=== PATIENT | male | born 1960 | race Caucasian/White ===

== ENCOUNTER 2016-12-09 16:35 | Emergency (ER) | payer MEDICARE, MEDICAID ==
[2016-12-09 16:51] VITALS: BP 125/90
[2016-12-09] MEDS ORDERED: Fluorescein Sodium TOPICAL* 1 MG TEST OPHTHALMIC ONE (17:03)
[2016-12-09] MEDS ORDERED: BSS OPTH.SOL* BTL OPHTHALMIC ONE (17:03)
[2016-12-09] MEDS ORDERED: Tetracaine 0.5% OPTH.SOL 4 ML* 1 DROP BTL ONE (17:09)
--- NOTE | 2016-12-09 17:10 | UC ---
Eye Complaint HPI - HPI Summary HPI Summary: complaint of red itchy right eye that started yesterday purulent drainage from it today eye is bothered by light denies vision changes and pain doesn't wear contacts 4 days ago he was hit in the eye by something when his friend was mowing the lawn - History of Current Complaint Chief Complaint: UCEye Stated Complaint: LEFT EYE COMPLAINT Time Seen by Provider: 12/09/16 17:01 Hx Obtained From: Patient - Allergies/Home Medications Allergies/Adverse Reactions: Allergies Allergy/AdvReac Type Severity Reaction Status Date / Time No Known Allergies Allergy Verified 12/09/16 16:50 Home Medications: Home Medications Furosemide TAB* [Lasix TAB*] 20 mg PO DAILY 12/09/16 [History Confirmed 12/09/16 ] Gabapentin CAP(*) [Neurontin 100 mg CAP(*)] 200 mg PO TID 12/09/16 [History Confirmed 12/09/16] Insulin Aspart PEN(NF) [Novolog Flexpen(NF)] 45 unit SC TID 12/09/16 [History Confirmed 12/09/16] Insulin GLARGINE(*) [Lantus(*)] 60 units SUBCUT Q12H 12/09/16 [History Confirmed 12/09/16] Lisinopril TAB* [Prinivil TAB 10 MG*] 10 mg PO DAILY 12/09/16 [History Confirmed 12/09/16] Metoprolol Tartrate TAB* [Lopressor TAB*] 25 mg PO DAILY 12/09/16 [History Confirmed 12/09/16] Rivaroxaban TAB(*) [Xarelto 20 mg] 20 mg PO DAILY 12/09/16 [History Confirmed ] oxyCODONE/Acetamin 5/325 MG* [Percocet 5/325 TAB*] 1 tab PO Q4H PRN 12/09/16 [ History Confirmed 12/09/16] PMH/Surg Hx/FS Hx/Imm Hx Previously Healthy: Yes Endocrine History: Diabetes Cardiovascular History: Cardiac Disease - Surgical History Surgical History: Yes Surgery Procedure, Year, and Place: cardiac stents 2010. right leg amuputation 2014 - Family History Known Family History: Negative: Cardiac Disease, Hypertension, Diabetes - Social History Occupation: Employed Full-time Lives: With Family Alcohol Use: None Substance Use Type: Marijuana Smoking Status (MU): Heavy Every Day Tobacco Smoker Type: Cigarettes Amount Used/How Often: 1ppd Cessation Counseling: Patient Advised to Stop Review of Systems Constitutional: Negative Skin: Negative Eyes: Drainage, Eye Redness, Photophobia ENT: Negative Respiratory: Negative Cardiovascular: Negative Gastrointestinal: Negative Genitourinary: Negative Motor: Negative Neurovascular: Negative Musculoskeletal: Negative Neurological: Negative Psychological: Negative All Other Systems Reviewed And Are Negative: Yes Physical Exam Triage Information Reviewed: Yes Appearance: No Pain Distress, Well-Nourished Vital Signs: Initial Vital Signs Temp 98.3 F 12/09/16 16:44 Pulse 75 12/09/16 16:44 Resp 16 12/09/16 16:44 BP 125/90 12/09/16 16:44 Pulse Ox 98 12/09/16 16:44 Vital Signs Reviewed: Yes Eyes: Positive: Conjunctiva Inflamed, Discharge, Other: - right eye observed under fluoriscine- no foreign objects seen, no abrasions on cornea ENT: Positive: Pharynx normal, TMs normal Neck: Positive: Supple, No Lymphadenopathy Respiratory: Positive: Lungs clear, Normal breath sounds, No respiratory distress Cardiovascular: Positive: RRR, No Murmur Abdomen Description: Positive: Nontender, Soft Bowel Sounds: Positive: Present Musculoskeletal: Positive: No Edema - LLE, Other: - RBKA Neurological: Positive: Alert Psychological Exam: Normal Skin Exam: Normal Eye Complaint Course/Dx - Differential Dx/Diagnosis Differential Diagnosis/HQI/PQRI: Conjunctivitis, Corneal Abrasion, Foreign Body Provider Diagnoses: conjunctivitis- right Discharge - Discharge Plan Condition: Stable Disposition: HOME Patient Education Materials: Conjunctivitis (ED) Referrals: Thor Stanton MD [Primary Care Provider] - Caity Mitchell MD [Medical Doctor] - Additional Instructions: Please start antibiotic eye ointment as directed Increase fluids and rest please call Dr Mitchell for an evaluation tomorrow- if you have any eye pain vision changes tonight please proceed to the emergency room Please review your discharge instructions. If your symptoms do not improve please call your primary care provider or return to urgent care.
[2016-12-09] MEDS ORDERED: Erythromycin OPTH OINT* APPLIC OINT RIGHT EYE ONE (17:19)
[2016-12-09] MEDS ORDERED: Tetracaine 0.5% OPTH.SOL 4 ML* 1 DROP BTL RIGHT EYE SCH (17:30)
== END 2016-12-09 17:41 | disposition home or self-care (01) ==
LOC: UCCORT 16:35
DX: H10.31 Unspecified acute conjunctivitis, right eye (principal); E11.9 Type 2 diabetes mellitus without complications; Z79.4 Long term (current) use of insulin; Z75.5 Holiday relief care; Z89.611 Acquired absence of right leg above knee; F17.210 Nicotine dependence, cigarettes, uncomplicated
CPT/HCPCS: 99213; A9270-GY; G0463

== ENCOUNTER 2018-11-02 19:21 | Emergency (ER) | payer MEDICARE, MEDICAID ==
--- OUTSIDE RECORDS SUMMARY | 2018-11-02 19:30 | XMS REPORT | Continuity of Care Document ---
:1960 External Reference #:[id number] Author Name Nolan Swan M.D. Address [address] [facility] [address] [place] [address] Care Team Providers Name Role Phone HCP given Primary Care Physician Unavailable Payers Date Identification Numbers Payment Provider Subscriber Policy Number: [id number] [employer] [facility] Maryann Byers PayID: [id number] Claims Dept [address] [address] [place] [address] Policy Number: [id number] Medicaid Maryann Byers PayID: [id number] [address] [place] [address] Advance Directives Description No Information Available Problems Active Problems Provider Date Phantom limb Nolan Swan M.D. Onset: 10/27/2016 Essential hypertension Nolan Swan M.D. Onset: 02/25/2017 Peripheral vascular disorder due to diabetes Nolan Swan M.D. Onset: 06/2016 mellitus History of polyp of colon Nolan Swan M.D. Onset: 02/25/2017 Alvarenga's esophagus Nolan Swan M.D. Onset: 02/25/2017 Chronic kidney disease Nolan Swan M.D. Onset: 02/25/2017 Tobacco user Nolan Swan M.D. Onset: 02/25/2017 Hyperlipidemia Tiff Gonzalez PA Onset: 07/06/2017 Long-term current use of opiate analgesic Nolan Swan M.D. Onset: 2017 drug Amputated below knee Nolan Swan M.D. Onset: 06/21/2018 Peripheral vascular disease Nolan Swan M.D. Onset: 06/21/2018 Type 2 diabetes mellitus Nolan Swan M.D. Onset: 06/21/2018 Cerebrovascular disease Nolan Swan M.D. Onset: 10/18/2018 Family History Date Family Member(s) Observation Comments : (age 70 Father due to Heart Years) problems and Diabetes Mother due to Kidney () - sec to DM Failure (in her early 70s) Children 6 1 daughter age 15 as of 04/24/16), 5 sons (ages 9-31 as of 04/24/16) Siblings Many 5 brothers, 8 sisters Social History Type Date Description Comments Sex Unknown Marital Status Work Status 10/27/2016 Not Currently Working Last 'real job' was ~[phone] Work Status Disability [email or web address] Tobacco Use Reviewed: 10/27/16 current cigarette smoker 1ppd since age 31; ~1/2ppd in his 20s; started smoking at age 16 Smoking Status Reviewed: 10/18/18 current cigarette smoker 1ppd since age 31 ; ~1/2ppd in his 20s; started smoking at age 16 ETOH Use 10/27/2016 Denies alcohol use Recreational Drug Use 10/27/2016 Denies Drug Use other than MJ (up to 1 joint/day) Tobacco Use Start: Unknown Patient is a current smoker, smokes every day Allergies, Adverse Reactions, Alerts Description No Known Drug Allergies Medications Active Medications SIG Qnty Indications Ordering Date Provider Nicotine apply 1 patch, 42units F17.210 Silcoff, 10/18/2018 21mg/24HR change daily as Jacqueline Francisco Patches 24HR directed; use for 6 weeks then change to 14mg strength Clopidogrel Take One Tablet By Unknown 10/17/2018 Bisulfate Mouth Every Day to 75mg reduce risk of Tablets clots Lantus Solostar inject 86units 45ml E11.59 Silcoff, 06/21/2018 2x/day, at same Jacqueline Francisco 100Unit/ML Solution time every day; for Pen-Inject blood sugar control Mupirocin Apply A Small Unknown 03/28/2018 2% Ointment Amount Daily To Left Heel Wound Amlodipine Besylate Take One Tablet By 30tabs I10 Silcoadalberto, 01/11/2018 Mouth Every Day For Jacqueline Francisco 10mg Tablets Blood Pressure Atorvastatin Calcium Take One Tablet By 30tabs E78.5 Silcoadalberto, 01/11/2018 Mouth Every Evening Jacqueline Francisco 20mg Tablets For Cholesterol Vitamin D take one capsule by 5caps E55.9 Silcoadalberto, 09/11/2017 (Ergocalciferol) mouth once weekly Jacqueline Francisco [id number] Capsules Metoprolol Tartrate Take One Tablet By 60tabs I10 Silcoadalberto, 03/13/2017 Mouth Twice A Day Jacqueline Francisco 50mg Tablets For High Blood Pressure Lisinopril Take One Tablet By 90tabs I10 Silcoadalberto, 12/24/2016 20mg Mouth Every Morning Jacqueline Francisco Tablets For High Blood Pressure Novolog Flexpen use 3x/day just 45ml E11.59 Silcoadalberto, 11/23/2016 before starting to Jacqueline Francisco 100Unit/ML Solution eat meals, Pen-Inject following sliding scale as provided by [facility]; Max 45u/meal Aspir-Low 1 every day Unknown 10/26/[address] Mclaughlin 1 every 5min as 50tabs Silcoadalberto, 10/26/2016 0.4mg needed heart pain Jacqueline Francisco Tablets Sub up to 3 max then call 911 if unreleaved Laton For Pen 31GX3/16" Unknown 10/01/2016 Oxycodone-Acetaminop take one tablet by 180tabs G54.6 Silcoadalberto, 09/13/2016 hen mouth every 4 hours Jacqueline Francisco 5-325mg Tablets as needed for pain; rx due 10/19/18 Omeprazole Take One Capsule By 30caps Beny, 08/11/2016 20mg Mouth Every Day Jacqueline Francisco Capsules Gabapentin Take Two Capsules 180caps G54.6 Zeldacoadalberto, 08/11/2016 300mg By Mouth Three Jacqueline Francisco Capsules Times A Day For Chronic Pain Bupropion HCL ER Take One Tablet By 60tabs Beny, 08/11/2016 (SR) Mouth Twice A Day Jacqueline Francisco 100mg Tablets ER For Mood 12HR Furosemide Take One Tablet By 90tabs Silcoadalberto, 07/09/2016 20mg Mouth Every Day Jacqueline Francisco Tablets History Medications Benzonatate 1 cap by mouth 30caps J06.9 Silcoff, 07/06/2017 - 200mg three times a day Jacqueline Francisco 11/14/2017 Capsules as needed cough Atorvastatin take 1 tablet daily 90tabs E78.5 Silcoff, 05/02/2017 - Calcium to reduce Jacqueline Francisco 01/11/2018 10mg cholesterol and Tablets lower risk of heart disease progression Lantus Solostar inject 80units 45ml E11.59 Silcoff, 05/02/2017 - 2x/day; for blood Jacqueline Francisco 06/21/2018 100Unit/ML Solution sugar control Pen-Inject Amlodipine Besylate Take One Tablet By 30tabs I10 Silcoff, 03/13/2017 - Mouth Every Day For Jacqueline Francisco 01/11/2018 5mg Tablets High Blood Pressure Chantix 1/2 pill once daily 60tabs F17.210 Silcoff, 02/25/2017 - 1mg Tablets for 3 days then 1/2 Jacqueline Francisco 11/14/2017 pill twice daily for 4 days then 1 pill twice daily; to help quit smoking Nicotine Polacrilex chew 1 piece every 200units F17.210 Silcoff, 2016 - 1-2hrs for 6wks Jacqueline Francisco 02/25/2017 2mg Gum then every 2 to 4 hours x3wks then q4-8h x3wks then d/c; use at least 9/d the 1st 6wks Lisinopril 1 pill daily in the 30tabs I10 Silcoff, 11/23/2016 - 10mg morning for high Jacqueline Francisco 12/24/2016 Tablets blood pressure Metformin HCL Take One Tablet By E11.59 Unknown 10/26/2016 - Mouth Twice A Day; 01/26/2017 1000mg Tablets for blood sugar control Lantus Solostar Inject 60 Units E11.59 Unknown 09/13/2016 - Subcutaneous Twice 05/02/2017 100Unit/ML Solution A Day Pen-Inject Humalog Kwikpen Sliding Scale Unknown 09/08/2016 - 11/23/2016 100Unit/ML Solution Pen-Inject Metoprolol Tartrate take 1/ 2 tablet by 90tabs I10 Silcoff, 07/07/2016 - mouth two times a Jacqueline Francisco 03/13/2017 25mg Tablets day for high blood pressure Xarelto Take One Tablet By 30tabs Beny, 07/07/2016 - 20mg Mouth Every Day Jacqueline Francisco 10/17/2018 Tablets Immunizations CPT Code Status Date Vaccine Lot # [id number] Given 04/19/2018 Influenza Virus Vaccine, Quadrivalent, Split, [id number] Preservative Free 17867 Given 02/25/2017 Adacel or Boostrix, TDaP [id number] Given 02/25/2017 Influenza Virus Vaccine, Quadrivalent, Split, [id number] Preservative Free 20605 Given 08/27/2013 Pneumococcal Immunization Vital Signs Date Vital Result Comment 10/18/2018 1:26pm BP Systolic 147 mmHg electronic BP Diastolic 75 mmHg electronic Heart Rate 74 /min Weight 248.00 lb 08/22/2018 2:26pm BP Systolic 142 mmHg BP Diastolic 80 mmHg Weight 241.00 lb 06/21/2018 1:55pm BP Systolic 132 mmHg BP Diastolic 80 mmHg Weight 245.00 lb with shoes 04/19/2018 8:59am BP Systolic 130 mmHg BP Diastolic 70 mmHg Weight 249.00 lb with shoes 02/07/2018 11:13am BP Systolic 120 mmHg BP Diastolic 80 mmHg BP Systolic Recheck 116 mmHg R arm sitting BP Diastolic Recheck 84 mmHg R arm sitting Weight 244.00 lb w/shoes 01/11/2018 8:44am BP Systolic 160 mmHg BP Diastolic 84 mmHg Weight 244.00 lb 12/02/2017 11:44am BP Systolic 124 mmHg BP Diastolic 70 mmHg Weight 228.38 lb has leg prosthesis 11/23/2017 5:53pm BP Systolic 139 mmHg per pt reporting BP Diastolic 76 mmHg per pt reporting Heart Rate 76 /min 11/15/2017 1:33pm BP Systolic 130 mmHg BP Diastolic 80 mmHg Height 71 inches 5'11" prosthesis Weight 241.00 lb prosthesis BMI (Body Mass Index) 33.6 kg/m2 09/12/2017 12:58pm BP Systolic 136 mmHg BP Diastolic 69 mmHg Heart Rate 77 /min Weight 240.00 lb w/rt leg prosthetic 07/06/2017 3:23pm BP Systolic 161 mmHg w/automatic cuff BP Diastolic 80 mmHg w/automatic cuff Heart Rate 85 /min Body Temperature 98.0 F Weight 219.00 lb with sneaker;rt BKA 05/02/2017 11:44am BP Systolic 124 mmHg BP Diastolic 80 mmHg 02/25/2017 11:12am BP Systolic 162 mmHg BP Diastolic 100 mmHg BP Systolic Recheck 130 mmHg R arm sitting BP Diastolic Recheck 96 mmHg R arm sitting Weight 215.00 lb 12/24/2016 9:41am BP Systolic 168 mmHg BP Diastolic 86 mmHg BP Systolic Recheck 166 mmHg R arm sitting BP Diastolic Recheck 94 mmHg R arm sitting Weight 229.00 lb w/shoe 11/23/2016 3:37pm BP Systolic 138 mmHg BP Diastolic 88 mmHg BP Systolic Recheck 146 mmHg R arm sitting BP Diastolic Recheck 84 mmHg R arm sitting Height 71 inches 5'11" per pt Weight 225.00 lb per pt BMI (Body Mass Index) 31.4 kg/m2 10/27/2016 4:57pm BP Systolic 142 mmHg BP Diastolic 80 mmHg Results Test Date Facility Test Result H/L Range Note CBS 08/21/2018 [facility] White Blood 7.9 K/uL N 3.4-10.5 1 W/Automated LABORATORY Count Diff [phone] Red Blood Count 5.33 M/uL N 4.20-5.80 Hemoglobin 15.0 gm/dL N 12.8-17.0 Hematocrit 44.2 % N 38.0-48.0 Mean Cell Volume 82.9 fl N 80.0-96.0 Mean Corpuscular HGB 28.1 pg N 27.0-33.0 Mean Corpuscular HGB Conc 33.9 g/dL N 31.7-36.0 Platelet Count 213 K/uL N 155-360 Red Cell Distri Width SD 42.5 fl N 36-51 Red Cell Distri Width %CV 14.2 % N 11.6-15.8 Mean Platelet Volume 9.0 fL N 6.6-10.6 Neut% 64.5 % N 33.0-73.0 Lymph % 25.7 % N 20.0-42.0 Mcmullen % 5.1 % N 0.0-10.0 Eo% 3.9 % N 0.0-6.6 Bas% 0.8 % N 0.0-1.1 Neut# 5.09 K/uL N 1.8-7.0 Lymph # 2.03 K/uL N 1.0-4.0 Mcmullen # 0.40 K/uL N 0.0-0.8 Eos # 0.31 K/uL N 0.0-0.5 Baso # 0.06 K/uL N 0.0-0.1 Influenza A/B 08/21/2018 [facility] Influenza A Negative ( Negative) Antigen LABORATORY Antigen [phone] Influenza B Antigen Negative (Negative) 2 Laboratory test 06/21/2018 In House Hemoglobin A1c 13.1 finding Basic Metabolic Panel 04/19/2018 [facility] Sodium 137 mmol/L N 135- 145 [phone] Potassium 4.9 mmol/L N 3.5-5.0 Chloride 104 mmol/L N 101-111 Co2 Carbon Dioxide 25 mmol/L N 22-32 Anion Gap 8 mmol/L N 2-11 Glucose 142 mg/dL High 70-100 Blood Urea Nitrogen 38 mg/dL High 6-24 Creatinine 1.47 mg/dL High 0.67-1.17 BUN/Creatinine Ratio 25.9 High 8-20 Calcium 9.2 mg/dL N 8.6-10.3 Egfr Non- 49.6 >60 Egfr 60.0 >60 3 Urine Microalbumin 04/19/2018 [facility] Urine Creatinine 153.00 mg/dL Random [phone] Ur Microalbumin (mg/L) 1497.0 Urine Microalbumin/Creatinine 978.4 High <31 Hemoglobin A1c 03/17/2018 [facility] Hgb A1c MFr Bld 11.3 % High 4.0- 6.0 Est. average glucose Bld gHb Est-mCnc 278 mg/dL High <126 Laboratory test 03/17/2018 [facility] Glucose Poc 249 mg/dL High 70- 105 finding Laboratory test 02/07/2018 [facility] Surgical SEE RESULT 4 finding [phone] Pathology BELOW Drugs Of 01/30/2018 [facility] Amphetamines Negative 5 Abuse-Urine LABORATORY (Urine) Screen 7 [phone] Barbiturates (Urine) Negative Benzodiazepines (Urine) Negative Cannabinoids (Urine) POSITIVE Abnormal Cocaine Metabolite (Urine) Negative Methadone (Urine) Negative Opiates (Urine) POSITIVE Abnormal Urine Cutoffs * 6 Laboratory test 01/30/2018 [facility] Triglycerides 668 mg/dL High <150 7, 8 finding LABORATORY [phone] Aot Request 01/30/2018 [facility] Aot Request Test(s) 9, 10 LABORATORY added [phone] Tests to be added: BMP Laboratory test 01/30/2018 [facility] Ethyl Alcohol < 3.0 mg/ dL finding LABORATORY [phone] Lactic Acid 01/30/2018 [facility] Lactic Acid 1.5 mmol/L N 0.4-1. LABORATORY 9 [phone] Lab Reflex >2.0 for Sepsis? N Basic Metabolic 01/30/2018 [facility] Glucose 347 mg/dL High 74-106 Panel LABORATORY [phone] BUN 35 mg/dL High 7-18 Creatinine 1.8 mg/dL High 0.6-1.3 Glom Filtration Rate, Estimate 42 mL/min >60 If 50 mL/min >60 11 BUN/Creat 19.4 ratio Sodium 134 mmol/L Low 136-145 Potassium 4.7 mmol/L N 3.5-5.1 Chloride 103 mmol/L N 98-107 Carbon Dioxide 22 mmol/L N 21-32 Anion Gap 9 mEq/L N 8-16 Calcium 8.4 mg/dL Low 8.5-10.1 Aot Request 01/30/2018 [facility] Aot Request Test(s) added 12 LABORATORY [phone] Tests to be added: troponin Laboratory test 01/30/2018 [facility] Lipase 418 U/L High 56 -289 finding LABORATORY [phone] Urinalysis With 01/29/2018 [facility] Urine Color YELLOW Yellow 13 Microscopic LABORATORY [phone] Urine Clarity CLEAR Clear Urine Glucose - Dipstick NEGATIVE mg/dL Negative Urine Bilirubin - Dipstick NEGATIVE Negative Urine Ketone NEGATIVE mg/dL Negative Urine Specific Butterfield 1.020 N 1.010-1.030 Urine Blood SMALL Abnormal Negative Urine PH 5.5 Low 6.5-7.5 Urine Protein - Dipstick 100 mg/dL High Negative Urine Urobilinogen - Dipstick 0.2 E.U./dL N 0.2-1.0 Urine Nitrite - Dipstick NEGATIVE Negative Urine Leuk Esterase NEGATIVE Negative Urine RBC 5-10 rbc/hpf High 0-2 Urine WBC 2-5 wbc/hpf 0-7 Urine Epithelial Cells FEW /lpf None Seen Urine Bacteria FEW None Seen Urine Hyaline Cast 0-2 #/lpf None Seen Urine Coarse Granular Cast 0-2 #/lpf None Seen Source: URINE, CLEAN CAT <SEE NOTE> 14 Laboratory test 01/28/2018 [facility] Troponin-I < 0.015 15, 16 finding LABORATORY ng/mL [phone] CBC 01/06/2018 [facility] White Blood 7.3 K/uL N 3.4-1 17 LABORATORY Count 0.5 [phone] Red Blood Count 5.64 M/uL N 4.20-5.80 Hemoglobin 15.9 gm/dL N 12.8-17.0 Hematocrit 46.6 % N 38.0-48.0 Mean Cell Volume 82.6 fl N 80.0-96.0 Mean Corpuscular HGB 28.2 pg N 27.0-33.0 Mean Corpuscular HGB Conc 34.1 g/dL N 31.7-36.0 Platelet Count 216 K/uL N 155-360 Red Cell Distri Width %CV 14.7 % N 11.6-15.8 Mean Platelet Volume 8.9 fL N 6.6-10.6 Basic Metabolic 01/06/2018 [facility] Glucose 147 mg/dL High 74-106 Panel LABORATORY [phone] BUN 24 mg/dL High 7-18 Creatinine 1.3 mg/dL N 0.6-1.3 Glom Filtration Rate, Estimate >60 mL/min >60 If >60 mL/min >60 18 BUN/Creat 18.4 ratio Sodium 139 mmol/L N 136-145 Potassium 4.1 mmol/L N 3.5-5.1 Chloride 109 mmol/L High 98-107 Carbon Dioxide 23 mmol/L N 21-32 Anion Gap 7 mEq/L Low 8-16 Calcium 8.4 mg/dL Low 8.5-10.1 Urinalysis With 01/05/2018 [facility] Urine Color YELLOW Yellow 19 Microscopic LABORATORY [phone] Urine Clarity CLEAR Clear Urine Glucose - Dipstick >=1000 mg/dL High Negative Urine Bilirubin - Dipstick NEGATIVE Negative Urine Ketone NEGATIVE mg/dL Negative Urine Specific Butterfield 1.015 N 1.010-1.030 Urine Blood MODERATE Abnormal Negative Urine PH 5.5 Low 6.5-7.5 Urine Protein - Dipstick 100 mg/dL High Negative Urine Urobilinogen - Dipstick 0.2 E.U./dL N 0.2-1.0 Urine Nitrite - Dipstick NEGATIVE Negative Urine Leuk Esterase NEGATIVE Negative Urine RBC 0-2 rbc/hpf 0-2 Urine WBC NONE SEEN wbc/hpf 0-7 Urine Epithelial Cells VERY FEW /lpf None Seen Urine Bacteria VERY FEW None Seen Urine Amorph Sediment VERY FEW Negative Source: URINE, CLEAN CAT <SEE NOTE> 20 LDL Cholesterol 01/05/2018 [facility] Cholesterol 226 mg/dL High <200 21, 22 Profile LABORATORY [phone] Triglycerides 536 mg/dL High <150 23 HDL Cholesterol 27 mg/dL Low >40 24 LDL-Cholesterol TNP mg/dL < 100 25 Glycohemoglobin 01/05/2018 [facility] Glycohemoglobin 13.3 % High 4.2-6.3 26 A1c LABORATORY (A1c) [phone] eAG 335 mg/dL Aot Request 01/05/2018 [facility] Aot Request Test(s) added 27, 28 LABORATORY [phone] Tests to be added: cpk, troponin CBS W/Automated 01/05/2018 [facility] White Blood 9.8 K/uL N 3.4-10.5 Diff LABORATORY Count [phone] Red Blood Count 5.67 M/uL N 4.20-5.80 Hemoglobin 16.2 gm/dL N 12.8-17.0 Hematocrit 46.1 % N 38.0-48.0 Mean Cell Volume 81.3 fl N 80.0-96.0 Mean Corpuscular HGB 28.6 pg N 27.0-33.0 Mean Corpuscular HGB Conc 35.1 g/dL N 31.7-36.0 Platelet Count 215 K/uL N 155-360 Red Cell Distri Width SD 42.1 fl N 36-51 Red Cell Distri Width %CV 14.4 % N 11.6-15.8 Mean Platelet Volume 9.1 fL N 6.6-10.6 Neut% 65.6 % N 33.0-73.0 Lymph % 22.4 % N 20.0-42.0 Mcmullen % 7.8 % N 0.0-10.0 Eo% 3.7 % N 0.0-6.6 Bas% 0.5 % N 0.0-1.1 Neut# 6.46 K/uL N 1.8-7.0 Lymph # 2.20 K/uL N 1.0-4.0 Mcmullen # 0.77 K/uL N 0.0-0.8 Eos # 0.36 K/uL N 0.0-0.5 Baso # 0.05 K/uL N 0.0-0.1 Comprehensive 01/05/2018 [facility] Glucose 459 mg/dL High 74-106 Metabolic Panel LABORATORY [phone] BUN 30 mg/dL High 7-18 Creatinine 1.6 mg/dL High 0.6-1.3 Glom Filtration Rate, Estimate 48 mL/min >60 If 58 mL/min >60 29 BUN/Creat 18.7 ratio Sodium 133 mmol/L Low 136-145 Potassium 4.8 mmol/L N 3.5-5.1 Chloride 98 mmol/L N 98-107 Carbon Dioxide 22 mmol/L N 21-32 Anion Gap 13 mEq/L N 8-16 Calcium 8.8 mg/dL N 8.5-10.1 Total Protein 7.8 g/dL N 6.4-8.2 Albumin 3.1 g/dL Low 3.4-5.0 Globulin 4.7 g/dL High 1.9-4.3 Alb/Glob 0.7 ratio Bilirubin,Total 0.3 mg/dL N 0.2-1.0 Sgot/Ast 34 U/L N 15-37 SGPT/Alt 58 U/L N 12-78 Alkaline Phosphatase 134 U/L High 45-117 Laboratory test 01/05/2018 [facility] Lipase 08472 U/L High 56-289 30 finding LABORATORY [phone] CK 323 U/L High 39-308 31 Troponin-I < 0.015 ng/mL 32 Laboratory test 12/02/2017 In House Glucose 259 finding Quantitative Laboratory test 11/15/2017 In House Hemoglobin A1c 12.4 finding Comp Metabolic 11/10/2017 [facility] Sodium 133 mmol/L Low 139-145 Panel [phone] Chloride 97 mmol/L Low 101-111 Co2 Carbon Dioxide 26 mmol/L N 22-32 Glucose 402 mg/dL High 70-100 Blood Urea Nitrogen 24 mg/dL N 6-24 Creatinine 1.14 mg/dL N 0.67-1.17 BUN/Creatinine Ratio 21.1 High 8-20 Calcium 9.4 mg/dL N 8.6-10.3 Total Protein 7.1 g/dL N 6.4-8.9 Albumin 3.6 g/dL N 3.2-5.2 Globulin 3.5 g/dL N 2-4 Albumin/Globulin Ratio 1.0 N 1-3 Total Bilirubin 0.50 mg/dL N 0.2-1.0 Alkaline Phosphatase 177 U/L High 34-104 Alt 89 U/L High 7-52 Ast 72 U/L High 13-39 Egfr Non- 66.4 >60 Egfr 85.5 >60 33 Potassium 5.1 mmol/L High 3.5-5.0 Anion Gap 10 mmol/L N 2-11 CBS W/Automated 08/16/2017 [facility] White Blood 6.4 K/uL N 3.4-10.5 34 Diff LABORATORY Count [phone] Red Blood Count 4.88 M/uL N 4.20-5.80 Hemoglobin 14.2 gm/dL N 12.8-17.0 Hematocrit 42.3 % N 38.0-48.0 Mean Cell Volume 86.7 fl N 80.0-96.0 Mean Corpuscular HGB 29.1 pg N 27.0-33.0 Mean Corpuscular HGB Conc 33.6 g/dL N 31.7-36.0 Platelet Count 169 K/uL N 155-360 Red Cell Distri Width SD 43.8 fl N 36-51 Red Cell Distri Width %CV 14.2 % N 11.6-15.8 Mean Platelet Volume 9.3 fL N 6.6-10.6 Neut% 50.5 % N 33.0-73.0 Lymph % 36.3 % N 20.0-42.0 Mcmullen % 7.2 % N 0.0-10.0 Eo% 5.1 % N 0.0-6.6 Bas% 0.9 % N 0.0-1.1 Neut# 3.23 K/uL N 1.8-7.0 Lymph # 2.33 K/uL N 1.0-4.0 Mcmullen # 0.46 K/uL N 0.0-0.8 Eos # 0.33 K/uL N 0.0-0.5 Baso # 0.06 K/uL N 0.0-0.1 Basic Metabolic 08/16/2017 [facility] Glucose 207 mg/dL High 74-106 Panel LABORATORY [phone] BUN 23 mg/dL High 7-18 Creatinine 1.2 mg/dL N 0.6-1.3 Glom Filtration Rate, Estimate >60 mL/min >60 If >60 mL/min >60 35 BUN/Creat 19.1 ratio Sodium 138 mmol/L N 136-145 Potassium 4.4 mmol/L N 3.5-5.1 Chloride 104 mmol/L N 98-107 Carbon Dioxide 29 mmol/L N 21-32 Anion Gap 5 mEq/L Low 8-16 Calcium 8.3 mg/dL Low 8.5-10.1 Urinalysis With 08/15/2017 [facility] Urine Color YELLOW Yellow Microscopic LABORATORY [phone] Urine Clarity CLEAR Clear Urine Glucose - Dipstick 500 mg/dL High Negative Urine Bilirubin - Dipstick NEGATIVE Negative Urine Ketone NEGATIVE mg/dL Negative Urine Specific Butterfield >=1.030 N 1.010-1.030 Urine Blood TRACE Negative Urine PH 5.5 Low 6.5-7.5 Urine Protein - Dipstick 100 mg/dL High Negative Urine Urobilinogen - Dipstick 0.2 E.U./dL N 0.2-1.0 Urine Nitrite - Dipstick NEGATIVE Negative Urine Leuk Esterase NEGATIVE Negative Urine RBC 0-2 rbc/hpf 0-2 Urine WBC 0-2 wbc/hpf 0-7 Urine Epithelial Cells VERY FEW /lpf None Seen Urine Bacteria VERY FEW None Seen Urine Hyaline Cast 0-2 #/lpf None Seen Urine Mucus SMALL None Seen Source: URINE, CLEAN CAT <SEE NOTE> 36 Laboratory 08/15/2017 [facility]. Legionella Negative Negative 37 test finding LABORATORY Urinary [phone] Antigen Legionella 08/15/2017 [facility]. Legionella No Legionella 38 Culture LABORATORY Culture sp <SEE NOTE> [phone] CBS 08/15/2017 [facility] White Blood 10.2 K/uL N 3.4-10.5 39 W/Automated LABORATORY Count Diff [phone] Red Blood Count 5.34 M/uL N 4.20-5.80 Hemoglobin 15.8 gm/dL N 12.8-17.0 Hematocrit 45.8 % N 38.0-48.0 Mean Cell Volume 85.8 fl N 80.0-96.0 Mean Corpuscular HGB 29.6 pg N 27.0-33.0 Mean Corpuscular HGB Conc 34.5 g/dL N 31.7-36.0 Platelet Count 204 K/uL N 155-360 Red Cell Distri Width SD 44.5 fl N 36-51 Red Cell Distri Width %CV 14.4 % N 11.6-15.8 Mean Platelet Volume 9.2 fL N 6.6-10.6 Neut% 60.9 % N 33.0-73.0 Lymph % 28.8 % N 20.0-42.0 Mcmullen % 7.4 % N 0.0-10.0 Eo% 2.4 % N 0.0-6.6 Bas% 0.5 % N 0.0-1.1 Neut# 6.19 K/uL N 1.8-7.0 Lymph # 2.92 K/uL N 1.0-4.0 Mcmullen # 0.75 K/uL N 0.0-0.8 Eos # 0.24 K/uL N 0.0-0.5 Baso # 0.05 K/uL N 0.0-0.1 Comprehensive 08/15/2017 [facility] Glucose 286 mg/dL High 74-106 Metabolic Panel LABORATORY [phone] BUN 29 mg/dL High 7-18 Creatinine 1.6 mg/dL High 0.6-1.3 Glom Filtration Rate, Estimate 48 mL/min >60 If 58 mL/min >60 40 BUN/Creat 18.1 ratio Sodium 136 mmol/L N 136-145 Potassium 5.1 mmol/L N 3.5-5.1 Chloride 103 mmol/L N 98-107 Carbon Dioxide 24 mmol/L N 21-32 Anion Gap 9 mEq/L N 8-16 Calcium 8.8 mg/dL N 8.5-10.1 Total Protein 7.4 g/dL N 6.4-8.2 Albumin 2.9 g/dL Low 3.4-5.0 Globulin 4.5 g/dL High 1.9-4.3 Alb/Glob 0.6 ratio Bilirubin,Total 0.3 mg/dL N 0.2-1.0 Sgot/Ast 83 U/L High 15-37 SGPT/Alt 75 U/L N 12-78 Alkaline Phosphatase 148 U/L High 45-117 Laboratory test finding 08/15/2017 [facility] Lipase 153 U/L N 56-289 LABORATORY [phone] CK 453 U/L High 39-308 41 Troponin-I < 0.015 ng/mL 42 Glycohemoglobin 08/15/2017 [facility] Glycohemoglobin 12.2 % High 4.2-6.3 43, A1c LABORATORY (A1c) 44 [phone] eAG 303 mg/dL Microalbumin,Urine 08/11/2017 [facility] Microalbumin Unable to <23.0 45, 46 Ur-mCnc Void mg/L Creat Ur-mCnc Unable to Void mg/dL Albumin/Creat Ur Unable to Void ug/mgcreat <20.0 Laboratory test 08/11/2017 [facility] Free Thyroxine 1.09 ng/dL 0.93- 1.70 finding Lipid Profile 1 08/11/2017 [facility] Cholest 183 mg/dL <200 SerPl-mCnc Trigl SerPl-mCnc 259 mg/dL High <150 HDLc SerPl-mCnc 31 mg/dL Low >40 LDLc SerPl Calc-mCnc 100 mg/dL High <100 VLDLc SerPl Calc-mCnc 52 mg/dL High 16-42 NonHDLc SerPl-mCnc 152 mg/dL High <130 Comprehensive Metabolic 08/11/2017 [facility] Albumin SerPl 3.8 g/dL 3.5-5.2 Levine BCG-mCnc Bilirub SerPl-mCnc 0.2 mg/dL <1.2 Calcium SerPl-mCnc 9.1 mg/dL 8.6-10.0 Chloride SerPl-sCnc 101 mmol/L 98-107 Creat SerPl-mCnc 1.21 mg/dL High 0.5-1.2 Glucose SerPl-mCnc 172 mg/dL High 70-140 Alp SerPl-cCnc 131 U/L High 40-129 Potassium SerPl-sCnc 4.3 mmol/L 3.5-5.1 Prot SerPl-mCnc 7.1 g/dL 6.4-8.3 Sodium SerPl-sCnc 142 mmol/L 136-145 Ast SerPl-cCnc 64 U/L High <40 BUN SerPl-mCnc 18 mg/dL 6-20 Osmolality SerPl Calc 300 mosm/kg 275-300 Creat/Urea nit SerPl 15 Hco3 Ser-sCnc 26 mmol/L 22-29 Alt SerPl-cCnc 62 U/L High <41 Anion Gap3 SerPl-sCnc 15 mmol/L 8-15 Albumin/Glob SerPl 1.2 GFR/Bsa pred.non black SerPl MDRD-ArVRat 65 mL/min/1.73m2 >60 GFR/Bsa pred.black SerPl MDRD-ArVRat 76 mL/min/1.73m2 >60 Laboratory test finding 08/11/2017 [facility] TSH 1.430 u[IU]/mL 0.270 -4.200 Vit D 25 Hydroxy Total 13 ng/mL Low >30 Laboratory test 08/11/2017 [facility] Glucose Poc 271 mg/dL High 70- 105 finding Hemoglobin A1c 08/11/2017 [facility] Hgb A1c MFr Bld >14.0 % High 4.0- 6.0 Est. average glucose Bld gHb Est-mCnc Unable to calcul <SEE NOTE> mg/dL < 126 47 Laboratory test 07/06/2017 [facility] House Hemoglobin A1c 13.3 finding CBC 03/13/2017 [facility] White Blood Count 5.5 K/uL N 3.4- 10. 48 LABORATORY 5 [phone] Red Blood Count 4.73 M/uL N 4.20-5.80 Hemoglobin 14.1 gm/dL N 12.8-17.0 Hematocrit 40.1 % 38.0-48.0 Mean Cell Volume 84.8 fl N 80.0-96.0 Mean Corpuscular HGB 29.8 pg N 27.0-33.0 Mean Corpuscular HGB Conc 35.2 g/dL N 31.7-36.0 Platelet Count 143 K/uL Low 150-400 Red Cell Distri Width %CV 14.3 % N 11.6-15.8 Mean Platelet Volume 9.6 fL N 6.6-10.6 Comprehensive 03/13/2017 [facility] Glucose 286 mg/dL High 74-106 Metabolic Panel LABORATORY [phone] BUN 32 mg/dL High 7-18 Creatinine 1.4 mg/dL High 0.6-1.3 Glom Filtration Rate, Estimate 56 mL/min >60 If >60 mL/min >60 49 BUN/Creat 22.8 ratio Sodium 137 mmol/L N 136-145 Potassium 4.3 mmol/L N 3.5-5.1 Chloride 106 mmol/L N 98-107 Carbon Dioxide 23 mmol/L N 21-32 Anion Gap 8 mEq/L N 8-16 Calcium 8.2 mg/dL Low 8.5-10.1 Total Protein 6.5 g/dL N 6.4-8.2 Albumin 2.7 g/dL Low 3.4-5.0 Globulin 3.8 g/dL N 1.9-4.3 Alb/Glob 0.7 ratio Bilirubin,Total 0.4 mg/dL N 0.2-1.0 Sgot/Ast 115 U/L High 15-37 SGPT/Alt 155 U/L High 12-78 Alkaline Phosphatase 116 U/L N 45-117 Glycohemoglobin 03/13/2017 [facility] Glycohemoglobin 13.9 % High 4.2-6.3 50 A1c LABORATORY (A1c) [phone] eAG 352 mg/dL Aot Request 03/12/2017 [facility] Aot Request Test(s) added 51 LABORATORY [phone] Tests to be added: liver panal CBS W/Automated 03/12/2017 [facility] White Blood 6.9 K/uL N 3.4-10.5 Diff LABORATORY Count [phone] Red Blood Count 5.40 M/uL N 4.20-5.80 Hemoglobin 15.6 gm/dL N 12.8-17.0 Hematocrit 45.0 % N 38.0-48.0 Mean Cell Volume 83.3 fl N 80.0-96.0 Mean Corpuscular HGB 28.9 pg N 27.0-33.0 Mean Corpuscular HGB Conc 34.7 g/dL N 31.7-36.0 Platelet Count 157 K/uL N 150-400 Red Cell Distri Width SD 42.8 fl N 36-51 Red Cell Distri Width %CV 14.3 % N 11.6-15.8 Mean Platelet Volume 9.2 fL N 6.6-10.6 Neut% 45.1 % N 33.0-73.0 Lymph % 43.0 % High 20.0-42.0 Mcmullen % 7.1 % N 0.0-10.0 Eo% 3.9 % N 0.0-6.6 Bas% 0.9 % N 0.0-1.1 Neut# 3.13 K/uL N 1.8-7.0 Lymph # 2.98 K/uL N 1.0-4.0 Mcmullen # 0.49 K/uL N 0.0-0.8 Eos # 0.27 K/uL N 0.0-0.5 Baso # 0.06 K/uL N 0.0-0.1 Basic Metabolic 03/12/2017 [facility] Glucose 321 mg/dL High 74-106 Panel LABORATORY [phone] BUN 45 mg/dL High 7-18 Creatinine 1.7 mg/dL High 0.6-1.3 Glom Filtration Rate, Estimate 45 mL/min >60 If 54 mL/min >60 52 BUN/Creat 26.4 ratio Sodium 135 mmol/L Low 136-145 Potassium 4.5 mmol/L N 3.5-5.1 Chloride 104 mmol/L N 98-107 Carbon Dioxide 21 mmol/L N 21-32 Anion Gap 10 mEq/L N 8-16 Calcium 8.5 mg/dL N 8.5-10.1 Liver Function 03/12/2017 [facility] Total Protein 7.3 g/dL N 6.4-8.2 Tests LABORATORY [phone] Albumin 3.0 g/dL Low 3.4-5.0 Globulin 4.3 g/dL N 1.9-4.3 Alb/Glob 0.7 ratio Bilirubin,Total 0.5 mg/dL N 0.2-1.0 Bilirubin,Direct 0.1 mg/dL N 0.0-0.2 Bilirubin,Indirect 0.4 mg/dL N 0.0-0.9 Sgot/Ast 151 U/L High 15-37 SGPT/Alt 150 U/L High 12-78 Alkaline Phosphatase 131 U/L High 45-117 Basic Metabolic 03/12/2017 [facility] Glucose 344 mg/dL High 74-106 Panel LABORATORY [phone] BUN 52 mg/dL High 7-18 Creatinine 1.8 mg/dL High 0.6-1.3 Glom Filtration Rate, Estimate 42 mL/min >60 If 51 mL/min >60 53 BUN/Creat 28.8 ratio Sodium 133 mmol/L Low 136-145 Potassium 4.6 mmol/L N 3.5-5.1 Chloride 102 mmol/L N 98-107 Carbon Dioxide 22 mmol/L N 21-32 Anion Gap 9 mEq/L N 8-16 Calcium 8.4 mg/dL Low 8.5-10.1 CBS W/Automated 03/11/2017 [facility] White Blood 7.6 K/uL N 3.4-10.5 54 Diff LABORATORY Count [phone] Red Blood Count 5.47 M/uL N 4.20-5.80 Hemoglobin 16.1 gm/dL N 12.8-17.0 Hematocrit 45.2 % N 38.0-48.0 Mean Cell Volume 82.6 fl N 80.0-96.0 Mean Corpuscular HGB 29.4 pg N 27.0-33.0 Mean Corpuscular HGB Conc 35.6 g/dL N 31.7-36.0 Platelet Count 179 K/uL N 150-400 Red Cell Distri Width SD 42.2 fl N 36-51 Red Cell Distri Width %CV 14.3 % N 11.6-15.8 Mean Platelet Volume 9.7 fL N 6.6-10.6 Neut% 59.6 % N 33.0-73.0 Lymph % 29.8 % N 20.0-42.0 Mcmullen % 6.2 % N 0.0-10.0 Eo% 3.7 % N 0.0-6.6 Bas% 0.7 % N 0.0-1.1 Neut# 4.52 K/uL N 1.8-7.0 Lymph # 2.26 K/uL N 1.0-4.0 Mcmullen # 0.47 K/uL N 0.0-0.8 Eos # 0.28 K/uL N 0.0-0.5 Baso # 0.05 K/uL N 0.0-0.1 Venous Blood Gas 03/11/2017 [facility] Venous Blood 7.34 N 7.25-7.55 LABORATORY Gas pH [phone] Venous Blood Gas Pco2 45 mmHg N 45-50 Venous Blood Gas Po2 45 mmHg N 40-60 Venous Blood Gas Hco3 23.4 mEq/L Venous Blood Gas Base XS -2.6 mEq/L Venous Blood Gas OS Sat. 80.6 % High 60-80 Laboratory test 03/11/2017 [facility]. NT-proBNP 102.0 <125 finding LABORATORY pg/mL [phone] Comprehensive 01/01/2017 [facility] Glucose 245 mg/dL High 74-106 55 Metabolic Panel LABORATORY [phone] BUN 40 mg/dL High 7-18 Creatinine 2.5 mg/dL High 0.6-1.3 Glom Filtration Rate, Estimate 29 mL/min >60 If 35 mL/min >60 56 BUN/Creat 16.0 ratio Sodium 136 mmol/L N 136-145 Potassium 4.8 mmol/L N 3.5-5.1 Chloride 101 mmol/L N 98-107 Carbon Dioxide 24 mmol/L N 21-32 Anion Gap 11 mEq/L N 8-16 Calcium 8.4 mg/dL Low 8.5-10.1 Total Protein 7.5 g/dL N 6.4-8.2 Albumin 3.2 g/dL Low 3.4-5.0 Globulin 4.3 g/dL N 1.9-4.3 Alb/Glob 0.7 ratio Bilirubin,Total 0.3 mg/dL N 0.2-1.0 Sgot/Ast 95 U/L High 15-37 SGPT/Alt 130 U/L High 12-78 Alkaline Phosphatase 147 U/L High 45-117 Laboratory test 01/01/2017 [facility] Lipase 262 U/L N 73- 393 57 finding LABORATORY [phone] CBS W/Automated 01/01/2017 [facility] White Blood 11.0 K/uL High 3.4-10.5 Diff LABORATORY Count [phone] Red Blood Count 5.79 M/uL N 4.20-5.80 Hemoglobin 16.6 gm/dL N 12.8-17.0 Hematocrit 48.0 % N 38.0-48.0 Mean Cell Volume 82.9 fl N 80.0-96.0 Mean Corpuscular HGB 28.7 pg N 27.0-33.0 Mean Corpuscular HGB Conc 34.6 g/dL N 31.7-36.0 Platelet Count 210 K/uL N 150-400 Red Cell Distri Width SD 44.6 fl N 36-51 Red Cell Distri Width %CV 14.9 % N 11.6-15.8 Mean Platelet Volume 9.5 fL N 6.6-10.6 Neut% 67.0 % N 33.0-73.0 Lymph % 24.3 % N 20.0-42.0 Mcmullen % 5.6 % N 0.0-10.0 Eo% 2.6 % N 0.0-6.6 Bas% 0.5 % N 0.0-1.1 Neut# 7.36 K/uL High 1.8-7.0 Lymph # 2.67 K/uL N 1.0-4.0 Mcmullen # 0.62 K/uL N 0.0-0.8 Eos # 0.28 K/uL N 0.0-0.5 Baso # 0.05 K/uL N 0.0-0.1 Slide Review 01/01/2017 [facility] Slide Review (SEE NOTE) 58 LABORATORY [phone] Basic Metabolic 12/24/2016 [facility] Sodium 129 mmol/L Low 133-14 Panel [phone] Potassium 4.8 mmol/L N 3.5-5.0 Chloride 96 mmol/L Low 101-111 Co2 Carbon Dioxide 23 mmol/L N 22-32 Anion Gap 10 mmol/L N 2-11 Glucose 381 mg/dL High 70-100 Blood Urea Nitrogen 33 mg/dL High 6-24 Creatinine 1.43 mg/dL High 0.67-1.17 BUN/Creatinine Ratio 23.1 High 8-20 Calcium 9.5 mg/dL N 8.6-10.3 Egfr Non- 51.3 N >60 Egfr 66.0 N >60 59 Laboratory test 12/24/2016 [facility] Hepatitis B Core Negative N Negative 60 finding [phone] AB Total TSH (Thyroid Stim Horm) 2.16 mcIU/mL N 0.34-5.60 Alpha 1 Antitrypsin A1a 137 mg/dL N 100 - 190 61 Tissue Transglutamianse Iga AB 2.8 U/mL N 62 Hepatitis B Aric 12/24/2016 [facility] Hepatitis B Nonreactive N Nonreactive AB Titer [phone] Surface AB Hep B Surf AB Level < 3.10 mIU/mL N <12 63 Laboratory test finding 12/24/2016 [facility] GGTP 258 U/L High 9- 64.0 [phone] Hepatitis B Surface Ag Nonreactive N Nonreactive Inr/Protime 12/24/2016 [facility] Inr 0.89 N 0.89-1.11 [phone] Laboratory test 12/24/2016 [facility] Smooth Muscle Negative N Negative 64 finding [phone] Antibody Anti Nuclear Antibody 1.6 U Abnormal 65 Iron & Iron Binding Capacity 12/24/2016 [facility] Iron 88 g/dL N 50-212 [phone] Unsaturated Iron Binding 339 g/dL N Total Iron Binding Capacity 427 g/dL N 250-450 % Iron Saturation 21 % N 15-55 Laboratory test 12/24/2016 [facility] Hepatitis C Nonreactive N Nonreactive finding [phone] Antibody Ceruloplasmin 48 mg/dL Abnormal 18-36 66 Liver Function Panel 12/24/2016 [facility] Total Protein 6.9 g/dL N 6.4-8.9 [phone] Albumin 3.6 g/dL N 3.2-5.2 Globulin 3.3 g/dL N 2-4 Albumin/Globulin Ratio 1.1 N 1-3 Total Bilirubin 0.40 mg/dL N 0.2-1.0 Direct Bilirubin 0.10 mg/dL N 0.03-0.18 Indirect Bilirubin 0.3 mg/dL N 0.3-1.0 Alkaline Phosphatase 154 U/L High 34-104 Alt 98 U/L High 7-52 Ast 71 U/L High 13-39 Urine Drug Screen Inhouse 10/27/2016 In House Ua Cocaine - Ua Opiates - Ua Amphetamines - Urine Methanphetamines - Urine Benzodiazepines QN [place] - Urine Oxycodone QL - 1 ? FLU 2 Please Note: A POSITIVE result for influenza A and/or B antigen does not rule out a co-infection with other pathogens or identify any specific influenza A virus subtype. A NEGATIVE result for influenza A and/or B antigen does not preclude influenza virus infection and should not be the sole basis for treatment or other management decisions, since the antigen present in the specimen may be below the detection limit of the test. A NEGATIVE result is PRESUMPTIVE and it is recommended these results be confirmed by virus culture or an FDA-cleared influenza A and B molecular assay. Method: [place] MR Photoelectricityitor Chromatographic immunoassay 3 Because ethnic data is not always readily available, this report includes an eGFR for both -Americans and non- Americans. The National Kidney Disease Education Program (NKDEP) does not endorse the use of the MDRD equation for patients that are not between the ages of 18 and 70, are , have extremes of body size, muscle mass, or nutritional status, or are non- or non-. According to the National Kidney Foundation, irrespective of diagnosis, the stage of the disease is based on the level of kidney function: Stage Description GFR(mL/min/1.73 m(2)) 1 Kidney damage with normal or decreased GFR 90 2 Kidney damage with mild decrease in GFR 60-89 3 Moderate decrease in GFR 30-59 4 Severe decrease in GFR 15-29 5 Kidney failure <15 (or dialysis) 4 SEE RESULT BELOW Name: MARYANN BYERS : [address]: Nolan Swan MD Acct: [id number] Unit: [id number] AGE: 57 Location: [facility] Re02/07/18 SEX: M Status: REG REF SPEC: [id number] NIRAJ: 02/07/18-[address]: Nolan Swan MD REQ: [id number] RECD: 02/07/18 STATUS: SOUT _ ORDERED: LEVEL 4 COMMENTS: [id number] FINAL DIAGNOSIS Skin, left forearm, biopsy: -- Verrucous seborrheic keratoses. CLINICAL HISTORY Ongoing many months PRE-OPERATIVE DIAGNOSIS D48.5 GROSS DESCRIPTION The specimen is received in formalin labeled, Shave Excisions Left Forearm, and consists of two mottled lora-brown ovoid scaly friable hairbearing skin shaves measuring 0.3 x 0.2 cm and 0.5 x 0.3 cm. Received separately in the same container is a 0.5 x 0.3 x 0.2 cm aggregate of lora-brown irregular friable skin fragments. The specimen is filtered, differentially inked and the largest fragment bisected. The specimen is submitted entirely in one cassette. Signed by and Reported on: Lisa Muniz MD 02/09/18 1430 END OF REPORT DEPARTMENT OF PATHOLOGY, [address] [place] [address] Harjeet Downing M.D. Director [facility] # [id number] 5 ACUTE PANCREATITIS 6 URINE SPECIMENS ARE SCREENED AT THE LISTED CUTOFFS DRUG CLASS INITIAL TEST LEVEL Amphetamines 1000 ng/mL Barbiturates 200 ng/mL Benzodiazepines 200 ng/mL Cannabinoids 50 ng/mL Cocaine Metabolite 300 ng/mL Methadone 300 ng/mL Opiates 300 ng/mL Any PRESUMPTIVE POSITIVE findings are UNCONFIRMED. Confirmatory testing is suggested if findings are unexpected. Please contact laboratory if confirmatory testing is desired. SPECIMENS ARE HELD FOR 72 HOURS. 7 NEVA PATEL WANTED HIM TO STAY LAST NIGHT-LEFT AMA 8 Reference Guidelines*: Normal: ............. < 150 mg/dL Borderline High: .... 150-199 mg/dL High: ............... 200-499 mg/dL Very High: .......... > 500 mg/dL * Source: National Cholesterol Education Program (NCEP) 9 ACUTE PANCREATITIS 10 Tests: BMP Instructions: 11 Note: Persistent reduction for 3 months or more in an eGFR <60 mL/min/1.73 m2 defines CKD. Patients with eGFR values >/=60 mL/min/1.73 m2 may also have CKD if evidence of persistent proteinuria is present. The original MDRD equation for estimated GFR is not valid for patients less than 18 years of age. Additional information may be found at [email or web address].org. 12 Tests: troponin Instructions: 13 NEVA PATEL WANTED HIM TO STAY LAST NIGHT-LEFT AMA 14 URINE, CLEAN CATCH 15 L SIDE ABD PAIN, DID NOT F/U W/ MD AFTER PANCREATI 16 0.0 - 0.045 ng/mL: Normal 0.046 - 0.5 ng/mL: Suggestive 0.6 - 1.5 ng/mL: Consistent 17 ACUTE PANCREATITIS 18 Note: Persistent reduction for 3 months or more in an eGFR <60 mL/min/1.73 m2 defines CKD. Patients with eGFR values >/=60 mL/min/1.73 m2 may also have CKD if evidence of persistent proteinuria is present. The original MDRD equation for estimated GFR is not valid for patients less than 18 years of age. Additional information may be found at www.[email or web address]. 19 RT SIDE INTO UPPER ABD PAIN 20 URINE, CLEAN CATCH 21 ACUTE PANCREATITIS 22 Reference Guidelines*: Desirable: ........... < 200 mg/dL Borderline High: ..... 200-239 mg/dL High: ................ >=240 mg/dL * The National Cholesterol Education Program (NCEP) 23 Reference Guidelines*: Normal: ............. < 150 mg/dL Borderline High: .... 150-199 mg/dL High: ............... 200-499 mg/dL Very High: .......... > 500 mg/dL * Source: National Cholesterol Education Program (NCEP) 24 Reference Guidelines*: Low HDL: ..... < 40 mg/dL Normal: ..... 40-60 mg/dL Desirable: ... > 60 mg/dL *The National Cholesterol Education Program(NCEP) 25 (LDL CANNOT BE CALCULATED FOR TRIGS >400 mg/dL) 26 Elevated levels of HbA1c suggest the need for more aggressive treatment of glycemia. The [place] [employer] recommends that a primary goal of therapy should be a HbA1c of <7% and that physicians should re-evaluate the treatment regimen in patients with HbA1c values consistently >8%. 27 RT SIDE INTO UPPER ABD PAIN 28 Tests: cpk, troponin Instructions: 29 Note: Persistent reduction for 3 months or more in an eGFR <60 mL/min/1.73 m2 defines CKD. Patients with eGFR values >/=60 mL/min/1.73 m2 may also have CKD if evidence of persistent proteinuria is present. The original MDRD equation for estimated GFR is not valid for patients less than 18 years of age. Additional information may be found at www.[email or web address]. 30 Result confirmed by repeat analysis. 31 CALLED YARA Dinh R.N. IN ER WITH LIPASE RESULT AT 0115 01/05/18 by LAB.TOW 32 0.0 - 0.045 ng/mL: Normal 0.046 - 0.5 ng/mL: Suggestive 0.6 - 1.5 ng/mL: Consistent 33 Because ethnic data is not always readily available, this report includes an eGFR for both -Americans and non- Americans. The National Kidney Disease Education Program (NKDEP) does not endorse the use of the MDRD equation for patients that are not between the ages of 18 and 70, are , have extremes of body size, muscle mass, or nutritional status, or are non- or non-. According to the National Kidney Foundation, irrespective of diagnosis, the stage of the disease is based on the level of kidney function: Stage Description GFR(mL/min/1.73 m(2)) 1 Kidney damage with normal or decreased GFR 90 2 Kidney damage with mild decrease in GFR 60-89 3 Moderate decrease in GFR 30-59 4 Severe decrease in GFR 15-29 5 Kidney failure <15 (or dialysis) 34 CAP, CKD, DM 35 Note: Persistent reduction for 3 months or more in an eGFR <60 mL/min/1.73 m2 defines CKD. Patients with eGFR values >/=60 mL/min/1.73 m2 may also have CKD if evidence of persistent proteinuria is present. The original MDRD equation for estimated GFR is not valid for patients less than 18 years of age. Additional information may be found at www.[email or web address]. 36 URINE, CLEAN CATCH 37 Presumptive negative for L. pneumophila serogroup 1 antigen in urine, suggesting no recent or current infection. Legionnaires' disease cannot be ruled out since other serogroups and species may also cause disease. 38 No Legionella species isolated. Performed at: RN - [facility] [address] [id number] [employer] T[employer]or: Heavenly Ndiaye MD, Phone: [phone] 39 RT LOWER BACK PAIN, RT CHEST PAIN, POSS FLU 40 Note: Persistent reduction for 3 months or more in an eGFR <60 mL/min/1.73 m2 defines CKD. Patients with eGFR values >/=60 mL/min/1.73 m2 may also have CKD if evidence of persistent proteinuria is present. The original MDRD equation for estimated GFR is not valid for patients less than 18 years of age. Additional information may be found at [email or web address]. 41 Specimen slightly Hemolyzed, interpret with caution 42 0.0 - 0.045 ng/mL: Normal 0.046 - 0.5 ng/mL: Suggestive 0.6 - 1.5 ng/mL: Consistent 43 CAP, CKD, DM 44 Elevated levels of HbA1c suggest the need for more aggressive treatment of glycemia. The [place] Diabetes Association recommends that a primary goal of therapy should be a HbA1c of <7% and that physicians should re-evaluate the treatment regimen in patients with HbA1c values consistently >8%. 45 UTV 46 PER RESPIRATORY CARE PROGRAM DIRECTOR 47 Unable to calculate 48 HYPERGLYCEMIA, HYPERKALEMIA, CKD 49 Note: Persistent reduction for 3 months or more in an eGFR <60 mL/min/1.73 m2 defines CKD. Patients with eGFR values >/=60 mL/min/1.73 m2 may also have CKD if evidence of persistent proteinuria is present. The original MDRD equation for estimated GFR is not valid for patients less than 18 years of age. Additional information may be found at www.[email or web address]. 50 Elevated levels of HbA1c suggest the need for more aggressive treatment of glycemia. The [place] [employer] recommends that a primary goal of therapy should be a HbA1c of <7% and that physicians should re-evaluate the treatment regimen in patients with HbA1c values consistently >8%. 51 Tests: liver panal Instructions: 52 Note: Persistent reduction for 3 months or more in an eGFR <60 mL/min/1.73 m2 defines CKD. Patients with eGFR values >/=60 mL/min/1.73 m2 may also have CKD if evidence of persistent proteinuria is present. The original MDRD equation for estimated GFR is not valid for patients less than 18 years of age. Additional information may be found at [email or web address]. 53 Note: Persistent reduction for 3 months or more in an eGFR <60 mL/min/1.73 m2 defines CKD. Patients with eGFR values >/=60 mL/min/1.73 m2 may also have CKD if evidence of persistent proteinuria is present. The original MDRD equation for estimated GFR is not valid for patients less than 18 years of age. Additional information may be found at [email or web address]. 54 HIGH BLOOD SUGAR, BLURRY VISION, NUMBNESS HANDS 55 LOW LT ABD PAIN 56 Note: Persistent reduction for 3 months or more in an eGFR <60 mL/min/1.73 m2 defines CKD. Patients with eGFR values >/=60 mL/min/1.73 m2 may also have CKD if evidence of persistent proteinuria is present. The original MDRD equation for estimated GFR is not valid for patients less than 18 years of age. Additional information may be found at [email or web address]. 57 SPECIMEN LIPEMIC 58 Instrument flagged sample for slide review. Less than 10% Bands seen, no other immature WBC's seen. RBC morphology essentially normal. Platelet estimate=Normal 59 Because ethnic data is not always readily available, this report includes an eGFR for both -Americans and non- Americans. The National Kidney Disease Education Program (NKDEP) does not endorse the use of the MDRD equation for patients that are not between the ages of 18 and 70, are , have extremes of body size, muscle mass, or nutritional status, or are non- or non-. According to the National Kidney Foundation, irrespective of diagnosis, the stage of the disease is based on the level of kidney function: Stage Description GFR(mL/min/1.73 m(2)) 1 Kidney damage with normal or decreased GFR 90 2 Kidney damage with mild decrease in GFR 60-89 3 Moderate decrease in GFR 30-59 4 Severe decrease in GFR 15-29 5 Kidney failure <15 (or dialysis) 60 Test Performed by: [place] [address] 61 Test Performed by: [place] [address] 62 REFERENCE VALUE <4.0 (Negative) Test Performed by: [place] [address] 63 This assay does not differentiate between reactivity due to a vaccine-induced immune response or an immune response induced by infection with HBV. 64 ADDITIONAL INFORMATION This test was developed and its performance characteristics determined by [facility] in a manner consistent with CLIA requirements. This test has not been cleared or approved by the U.S. Food and Drug Administration. Test Performed by: [facility] [address] [place] [address] 65 Interpretation: Weak Positive (1.1-2.9) REFERENCE VALUE <=1.0 (Negative) Test Performed by: [facility] [address] [place] [address] 66 Adults: Males: 18-36 mg/dL Females: 18-53 mg/dL Pediatrics: Males (mg/dL) Females (mg/dL) 0-30 Days 8-25 3-28 31 Days-11 Month 15-48 15-43 1-3 Years 25-56 29-54 4-6 Years 29-56 26-54 7-9 Years 25-52 23-48 10-12 Years 21-51 21-48 13-15 Years 20-50 21-46 16-18 Years 20-45 22-50 The pediatric ranges are derived from the following criteria: Marcel SJ, Telly JM, Lore J et al Pediatric reference ranges for Awlk-4-Lwyssftedojzc and ceruloplasmin. Clin. Chem 1997; 43:S1999 Pediatric Reference Ranges, 2nd., [place] Marcelet al. editors. [employer], [place], [place] 1997. Test Performed at: [facility], [address] [place] [address] [employer] [place], FCAP Test Performed by: [facility] [place] [address] [place] [address] Procedures Date Code Description Status 08/31/2018 [id number] Diabetic Retinal Eye Exam Completed 06/21/2018 [id number] Diabetic Foot Exam Completed 02/07/2018 93909 Biopsy Skin Lesion Each Addtl Completed 02/07/2018 93612 Biopsy Skin Lesion Single Completed 09/12/2017 82524 Remove Impact Cerumen Irrigation/Lavage Unilateral Completed 01/18/2017 [id number] Colonoscopy Completed Encounters Type Date Location Provider Dx Diagnosis Office Visit 10/18/2018 Main Office Nolan Swan, G54.6 Phantom limb 1:30p M.D. 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 I10 Essential (primary) hypertension N18.9 Chronic kidney disease, unspecified Z89.511 Acquired absence of right leg below knee H53.123 Transient visual loss, bilateral F17.210 Nicotine dependence, cigarettes, uncomplicated Office Visit 06/21/2018 1:45p Main Office Beny E11.59 Type 2 diabetes Jacqueline Francisco mellitus with oth circulatory complications G54.6 Phantom limb syndrome with pain Z79.891 alf (current) use of opiate analgesic I10 Essential (primary) hypertension N18.9 Chronic kidney disease, unspecified Z89.511 Acquired absence of right leg below knee L97.421 Non-prs chr ulcer of left heel and midft lmt to brkdwn skin E11.21 Type 2 diabetes mellitus with diabetic nephropathy Office Visit 04/19/2018 9:15a Main Office Nolan Swan, G54.6 Phantom limb M.D. 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 K85.90 Acute pancreatitis without necrosis or infection, unsp N18.9 Chronic kidney disease, unspecified K86.1 Other chronic pancreatitis D48.5 Neoplasm of uncertain behavior of skin G54.6 Phantom limb syndrome with pain I73.9 Peripheral vascular disease, unspecified Office Visit 01/11/2018 8:40a Main Office Tiff Gonzalez, E11.59 Type 2 diabetes PA mellitus with oth circulatory complications I10 Essential (primary) hypertension E78.5 Hyperlipidemia, unspecified F17.210 Nicotine dependence, cigarettes, uncomplicated K86.1 Other chronic pancreatitis Office Visit 12/02/2017 11:20a Main Office Nicolle Ventura E11.59 Type 2 diabetes P.A. mellitus with oth circulatory complications I10 Essential (primary) hypertension Z71.3 Dietary counseling and surveillance R23.9 Unspecified skin changes E11.65 Type 2 diabetes mellitus with hyperglycemia Z91.11 Patient's noncompliance with dietary regimen Office Visit 11/15/2017 1:30p Main Office Beny E11.59 Type 2 diabetes Jacqueline Francisco mellitus with oth circulatory complications K76.0 Fatty (change of) liver, not elsewhere classified G54.6 Phantom limb syndrome with pain I10 Essential (primary) hypertension N18.9 Chronic kidney disease, unspecified E78.5 Hyperlipidemia, unspecified E55.9 Vitamin D deficiency, unspecified Office Visit 09/12/2017 12:55p Main Office Beny E11.59 Type 2 diabetes Jacqueline Francisco mellitus with oth circulatory complications G54.6 Phantom limb syndrome with pain I10 Essential (primary) hypertension N18.9 Chronic kidney disease, unspecified E78.5 Hyperlipidemia, unspecified E55.9 Vitamin D deficiency, unspecified R74.0 Nonspec elev of levels of transamns & lactic acid dehydrgnse H61.23 Impacted cerumen, bilateral Office Visit 07/06/2017 3:00p Main Office Tiff Gonzalez, E11.59 Type 2 diabetes PA mellitus with oth circulatory complications G54.6 Phantom limb syndrome with pain I10 Essential (primary) hypertension N18.9 Chronic kidney disease, unspecified E78.5 Hyperlipidemia, unspecified F17.210 Nicotine dependence, cigarettes, uncomplicated J06.9 Acute upper respiratory infection, unspecified E11.65 Type 2 diabetes mellitus with hyperglycemia Office Visit 05/02/2017 11:30a Main Office Beny, E11.59 Type 2 diabetes Jacqueline Francisco mellitus with oth circulatory complications G54.6 Phantom limb syndrome with pain I10 Essential (primary) hypertension N18.9 Chronic kidney disease, unspecified R74.0 Nonspec elev of levels of transamns & lactic acid dehydrgnse E78.5 Hyperlipidemia, unspecified Office Visit 02/25/2017 11:00a Main Office Nolan Swan G54.6 Phantom limb M.D. syndrome with pain I10 Essential (primary) hypertension E11.59 Type 2 diabetes mellitus with oth circulatory complications Z86.010 Personal history of colonic polyps K22.70 Alvarenga's esophagus without dysplasia N18.9 Chronic kidney disease, unspecified Z12.2 Encntr screen for malignant neoplasm of respiratory organs Z23 Encounter for immunization F17.210 Nicotine dependence, cigarettes, uncomplicated Z41.8 [facility]cntr [facility] Office Visit 12/24/2016 9:30a Main Office Nolan Swan G54.6 Phantom limb M.D. syndrome with pain F17.210 Nicotine dependence, cigarettes, uncomplicated I10 Essential (primary) hypertension Z79.891 [employer] (current) use of opiate analgesic R74.0 Nonspec elev of levels of transamns & lactic acid dehydrgnse E78.5 Hyperlipidemia, unspecified Z71.89 Other specified counseling Office Visit 11/23/2016 3:30p Main Office Nolan Swan G54.6 Phantom limb M.D. syndrome with pain E11.59 Type 2 diabetes mellitus with oth circulatory complications F17.210 Nicotine dependence, cigarettes, uncomplicated Z71.89 Other specified counseling Z79.891 [employer] (current) use of opiate analgesic R74.0 Nonspec elev of levels of transamns & lactic acid dehydrgnse E78.5 Hyperlipidemia, unspecified I10 Essential (primary) hypertension Office Visit 10/27/2016 4:15p Main Office Nolan Swan G54.6 Phantom limb M.D. syndrome with pain E11.59 Type 2 diabetes mellitus with oth circulatory complications I25.119 Athscl heart disease of [place] cor art w unsp ang pctrs I73.9 Peripheral vascular disease, unspecified F17.210 Nicotine dependence, cigarettes, uncomplicated Z89.511 Acquired absence of right leg below knee Z79.891 [employer] (current) use of opiate analgesic Plan of Treatment Future Appointment(s):12/18/2018 11:00 am - Nolan Swan M.D. at Main [facility]12/02/2017 - Mohit LowE11.59 Type 2 diabetes mellitus with other circulatory [id number] Essential (primary) hypertensionComments:pt advised to report cp, change in angina , sob etContinue same meds with no change. Comply with diet and exercise. Lose weight and watch salt in diet.Z71.3 Dietary counseling and surveillanceComments:over 25 minutes was spent with this pt, over 1/2 was on counseling and education: protein choices, reducing carbs somewhat at meals, portions, why glu might be higher in the morning and ways to avoid this, food categories, etc, and how this all can imkpact blood sugarseems pt got basic understanding but needs f/u counseling on choices and balance, portion monitoringFollow up:can make follow up appt urevgxnZ79.9 Unspecified skin changesComments:referred pt back to Dr. Swan to discuss these lesions at next appt on 01/16/18E11.65 Type 2 diabetes mellitus with [id number] Patient's noncompliance with dietary regimen
[2018-11-02 19:38] VITALS: BP 158/73
[2018-11-02] MEDS ORDERED: Lidocaine 2% W/EPI 1:100,000* 20 ML MDV INJ ONE (20:03)
--- NOTE | 2018-11-03 10:08 | UC ---
Skin Complaint HPI - HPI Summary HPI Summary: R groin lump, redness, inflammation with some discharge. He is concerned b/c that is where he had other infections in the past. of note he had endartarectomy . denies fever, n/v. - History of Current Complaint Chief Complaint: UCSkin Time Seen by Provider: 11/02/18 19:30 Stated Complaint: PAIN GROIN Hx Obtained From: Patient Onset/Duration: Gradual Onset Skin Exposure Onset/Duration: Weeks Ago Onset Severity: Moderate Current Severity: Mild Pain Intensity: 1 Pain Scale Used: 0-10 Numeric - Allergy/Home Medications Allergies/Adverse Reactions: Allergies Allergy/AdvReac Type Severity Reaction Status Date / Time No Known Allergies Allergy Verified 11/02/18 19:38 Home Medications: Home Medications Clopidogrel TAB* [Plavix TAB*] 75 mg PO DAILY 11/02/18 [History Confirmed ] PMH/Surg Hx/FS Hx/Imm Hx - Additional Past Medical History Additional PMH: R BTK amputation Endocrine History: Diabetes Cardiovascular History: Cardiac Disease, Hypertension - Surgical History Surgical History: Yes Surgery Procedure, Year, and Place: cardiac stents 2010. right leg amuputation 2014. carotid endarectomy - Family History Known Family History: Negative: Cardiac Disease, Hypertension, Diabetes - Social History Alcohol Use: None Substance Use Type: Marijuana Substance Use Comment - Amount & Last Used: daily usage Smoking Status (MU): Heavy Every Day Tobacco Smoker Type: Cigarettes Amount Used/How Often: 1ppd Length of Time of Smoking/Using Tobacco: since age 15 Review of Systems All Other Systems Reviewed And Are Negative: Yes Constitutional: Negative: Fever, Chills Skin: Positive: Other - R groin redness/pain. Negative: Rash, Bruising Respiratory: Positive: Negative Cardiovascular: Positive: Negative Gastrointestinal: Negative: Abdominal Pain, Vomiting, Diarrhea Genitourinary: Negative: Dysuria Neurological: Negative: Headache Physical Exam Triage Information Reviewed: Yes Appearance: Obese Vital Signs: Initial Vital Signs Temp 98.6 F 11/02/18 19:31 Pulse 91 11/02/18 19:31 Resp 21 11/02/18 19:31 BP 158/73 11/02/18 19:31 Pulse Ox 98 11/02/18 19:31 Vital Signs Reviewed: Yes Neck: Positive: Supple, Nontender, No Lymphadenopathy, Other: - healing wound in R neck from recent surgical procedure. Respiratory Exam: Normal Cardiovascular Exam: Normal Musculoskeletal: Positive: Other: - R LL amputation Neurological: Positive: Alert Skin: Positive: Other - R groin abscess w/ no surrounding area of cellulitis. already draining but it was decided an I&D needed to be done to fully empty out space. of NOTE pubic area has many closed comedones. Procedures - Incision and Drainage Right Groin Anesthesia: Lidocaine - w/ epi Instrument(s): Scalpel, Needle Packing: Other - none, left to continue draining Course/Dx - Course Course Of Treatment: R groin abscess that was already draining when he came in for eval. Pt Afebrile. We were able to do a successful I&D w/ foul smelling purulent material which we cultured. Pt tolerated well. Left area to drain w/ gauze and pt will f/u in 2-3 days. BP ELEVATED but we discussed reviewing this w/ his pcp. - Differential Diagnoses - Skin Complaint Differential Diagnoses: Abscess, Impetigo, Lymphadenitis, Lymphangitis - Diagnoses Provider Diagnosis: Abscess Discharge - Sign-Out/Discharge Documenting (check all that apply): Patient Departure All imaging exams completed and their final reports reviewed: No Studies - Discharge Plan Condition: Good Disposition: HOME Patient Education Materials: Abscess (ED) Referrals: Nolan Swan MD [Primary Care Provider] - Additional Instructions: please follow up with your pcp in 3 days. - Billing Disposition and Condition Condition: GOOD Disposition: Home
--- NOTE | 2018-11-04 08:30 | UC ---
- Progress Note Progress Note: Wound Gram stain comes back from November 02, 2018. MRSA negative staph aureus negative. There are 3+ gram-positive cocci and 2+ gram-negative bacilli. Patient is not on an antibiotic at this time. Nursing to call patient to find out how he is doing. If he is not healing well or if he is worse discussed with provider to start an antibiotic. If he is healing well we do not need to start an antibiotic at this time. Wound cultures are still pending. Course/Dx - Diagnoses Provider Diagnoses: Abscess Discharge - Sign-Out/Discharge Documenting (check all that apply): Patient Departure All imaging exams completed and their final reports reviewed: No Studies - Discharge Plan Condition: Good Disposition: HOME Patient Education Materials: Abscess (ED) Referrals: Nolan Swan MD [Primary Care Provider] - Additional Instructions: please follow up with your pcp in 3 days. - Billing Disposition and Condition Condition: GOOD Disposition: Home
== END 2018-11-02 20:25 | disposition home or self-care (01) ==
LOC: UCCORT 19:21
DX: L02.214 Cutaneous abscess of groin (principal); E11.9 Type 2 diabetes mellitus without complications; I11.9 Hypertensive heart disease without heart failure; F17.210 Nicotine dependence, cigarettes, uncomplicated
CPT/HCPCS: 10060; 87070; 87076; 87205; 87640; 87641; 99211; G0463

== ENCOUNTER 2019-09-06 11:22 | Emergency (ER) | payer MEDICAID, MEDICARE ==
[2019-09-06 12:37] VITALS: BP 152/54
[2019-09-06 12:57] LABS: Influenza A Molecular Negative (Negative); Influenza B Molecular Negative (Negative)
--- NOTE | 2019-09-06 13:58 | UC ---
FLU HPI - HPI Summary HPI Summary: 59-year-old male presents with 2 day history of a dry nonproductive cough. Associated with some mild nasal congestion. Denies fever, chills, ear pain, sore throat, chest pain, shortness of breath, abdominal pain, nausea, vomiting, or diarrhea. - History of Current Complaint Chief Complaint: UCRespiratory Stated Complaint: FLU SYMP Time Seen by Provider: 09/06/19 13:47 Hx Obtained From: Patient Pain Intensity: 0 - Allergy/Home Medications Allergies/Adverse Reactions: Allergies Allergy/AdvReac Type Severity Reaction Status Date / Time No Known Allergies Allergy Verified 09/06/19 12:24 Home Medications: Home Medications Furosemide TAB* [Lasix TAB*] 20 mg PO DAILY 12/09/16 [History Confirmed 09/06/19 ] Gabapentin CAP(*) [Neurontin 100 mg CAP(*)] 600 mg PO TID 12/09/16 [History Confirmed 09/06/19] Insulin Aspart PEN(NF) [Novolog Flexpen 100 UNITS/ML 3 ML x 5 CART] 40 unit SC TID 12/09/16 [History Confirmed 09/06/19] Lisinopril TAB* [Prinivil TAB 10 MG*] 10 mg PO DAILY 12/09/16 [History Confirmed 09/06/19] Metoprolol Tartrate TAB* [Lopressor TAB*] 50 mg PO BID 12/09/16 [History Confirmed 09/06/19] oxyCODONE/Acetamin 5/325 MG* [Percocet 5/325 TAB*] 1 tab PO Q4H PRN 12/09/16 [ History Confirmed 09/06/19] Clopidogrel TAB* [Plavix TAB*] 75 mg PO DAILY 11/02/18 [History Confirmed ] Benzonatate CAP* [Tessalon 100 MG CAP*] 100 mg PO TID PRN #21 cap 09/06/19 [Rx] Insulin Degludec [Tresiba Flextouch 200 units/ml x 3 Pens] 0 units SUBCUT [History] PMH/Surg Hx/FS Hx/Imm Hx Endocrine History: Diabetes Cardiovascular History: Cardiac Disease, Hypertension, Other - PVD - Surgical History Surgical History: Yes Surgery Procedure, Year, and Place: cardiac stents 2010. right leg amuputation 2014. carotid endarectomy. stents left and right leg - Family History Known Family History: Negative: Cardiac Disease, Hypertension, Diabetes - Social History Occupation: Disabled Lives: With Family Alcohol Use: None Substance Use Type: Marijuana Substance Use Comment - Amount & Last Used: daily usage Smoking Status (MU): Heavy Every Day Tobacco Smoker Type: Cigarettes Amount Used/How Often: 1ppd Length of Time of Smoking/Using Tobacco: since age 15 Household Exposure Type: Cigarettes Review of Systems All Other Systems Reviewed And Are Negative: Yes Constitutional: Negative: Fever, Chills, Fatigue Eyes: Negative: Drainage, Eye Redness ENT: Positive: Sinus Congestion. Negative: Sore Throat, Ear Ache, Nasal Discharge, Sinus Pain/Tenderness Respiratory: Positive: Cough. Negative: Shortness Of Breath Cardiovascular: Negative: Palpitations, Chest Pain Gastrointestinal: Negative: Abdominal Pain, Vomiting, Diarrhea, Nausea Genitourinary: Positive: Negative Musculoskeletal: Positive: Negative Neurological/Mental Status: Positive: Negative Is Patient Immunocompromised?: No Physical Exam - Summary Physical Exam Summary: GENERAL APPEARANCE: Alert and cooperative chronically ill appearing adult male who appears to be in no acute distress. EYES: Conjunctiva clear. No drainage. EARS: External auditory canals and tympanic membranes clear, hearing grossly intact. NOSE: Mild nasal congestion. No nasal discharge. THROAT: Pharynx normal. No tonsilar inflammation, swelling, exudate, or lesions. Uvula midline. NECK: Neck supple, non-tender without lymphadenopathy. CARDIAC: Normal S1 and S2. No S3, S4 or murmurs. Rhythm is regular. There is no peripheral edema, cyanosis or pallor. Extremities are warm and well perfused. Capillary refill is less than 2 seconds. Peripheral pulses intact. LUNGS: Clear to auscultation without rales, rhonchi, wheezing or diminished breath sounds. Dry nonproductive cough. ABDOMEN: Positive bowel sounds. Soft, nondistended, nontender. No guarding or rebound. No masses or hepatosplenomegally. MUSKULOSKELETAL: Right BKA. ROM intact to all extremities. No joint erythema or tenderness. Normal muscular development. Normal gait. SKIN: Skin normal color, texture and turgor with no lesions or eruptions. Triage Information Reviewed: Yes Vital Signs: Initial Vital Signs Temp 98 F 09/06/19 12:29 Pulse 66 09/06/19 12:29 Resp 18 09/06/19 12:29 BP 152/54 09/06/19 12:29 Pulse Ox 97 09/06/19 12:29 Vital Signs Reviewed: Yes Flu Course/Dx - Course Course Of Treatment: 59-year-old male presents with 2 day history of a dry nonproductive cough. Associated with some mild nasal congestion. Denies fever, chills, ear pain, sore throat, chest pain, shortness of breath, abdominal pain, nausea, vomiting, or diarrhea. Afebrile. Hypertensive otherwise vital signs stable. Patient had some mild nasal congestion, normal TMs, normal pharynx without tonsillar swelling or exudate, no cervical lymphadenopathy, clear bilateral breath sounds , dry nonproductive cough, and otherwise unremarkable exam. Rapid flu test was negative. Recommending symptomatic treatment for viral upper respiratory infection including Tessalon Perles 1 capsule every 8 hours as needed for cough. He is to follow-up with his primary care provider in 5-7 days if symptoms are not improving. Anticipatory guidance and warning symptoms reviewed with the patient. Verbalizes understanding and agrees with plan of care. - Differential Dx/Diagnosis Differential Diagnosis/HQI/PQRI: Bronchitis, Influenza, Pneumonia, Upper Respiratory Infection Provider Diagnosis: Upper respiratory infection with cough and congestion Discharge ED - Sign-Out/Discharge Documenting (check all that apply): Patient Departure All imaging exams completed and their final reports reviewed: No Studies - Discharge Plan Condition: Stable Disposition: HOME Prescriptions: Benzonatate CAP* [Tessalon 100 MG CAP*] 100 mg PO TID PRN #21 cap PRN Reason: Cough Patient Education Materials: Upper Respiratory Infection (ED) Referrals: Nolan Swan MD [Primary Care Provider] - 5 Days Additional Instructions: Your history and exam are consistent with a viral upper respiratory infection. Viral infections do not respond to antibiotics and are limited to the treatment of symptoms. Viral infections typically run their course in 7-10 days. Drink plenty of fluids to avoid dehydration especially if you are running any fever. Use fluticasone (Flonase) nasal spray 2 sprays each nostril once daily. Take Tessalon Perles 1 cap every 8 hours as needed for cough. Take over the counter acetaminophen (Tylenol) or ibuprofen (Advil, Motrin) according to directions as needed for pain or fever. Use salt water gargles several times a day if you have a sore throat. You may also use Chloraseptic spray or Cepacol lonzenges according to directions which contain a numbing medication and can provide some temporary relief from your sore throat. Follow up with your primary care provider in 5-7 days if symptoms persist. Seek immediate medical attention in the emergency room if you have fever greater than 100.5 F despite taking acetaminophen or ibuprofen, have chest pain , difficulty breathing, are unable to swallow, or have any worsening of symptoms. - Billing Disposition and Condition Condition: STABLE Disposition: Home
== END 2019-09-06 14:26 | disposition home or self-care (01) ==
LOC: UCCORT 11:22
DX: J06.9 Acute upper respiratory infection, unspecified (principal); R05 Cough; R09.81 Nasal congestion; E11.9 Type 2 diabetes mellitus without complications; I10 Essential (primary) hypertension; F17.210 Nicotine dependence, cigarettes, uncomplicated; Z79.4 Long term (current) use of insulin; Z79.899 Other long term (current) drug therapy
CPT/HCPCS: 99212; G0463

== ENCOUNTER 2020-01-01 03:41 | Inpatient (IN) ==
[2020-01-01] MEDS ORDERED: Heparin DRIP 25,000 UNITS BAG 25,000 UNITS/500 ML BAG ONE (03:44)
[2020-01-01] MEDS ORDERED: nitroGLYCERIN DRIP 25,000 MCG in Premix IV 0 ML IV ONE (03:50)
[2020-01-01] MEDS ORDERED: fentaNYL 100 mcg/2 ml 50 MCG/ML VIAL IV PRN (03:50)
[2020-01-01] MEDS ORDERED: fentaNYL 100 mcg/2 ml 50 MCG/ML VIAL IV ONE (03:50)
[2020-01-01] MEDS ORDERED: Heparin DRIP 25,000 UNITS BAG 25,000 UNITS/500 ML BAG IV SCH (04:15)
[2020-01-01 04:31] LABS: ABS Basophils 0.1 10^3/ul (0-0.2); ABS Eosinophils 0.3 10^3/ul (0-0.6); ABS Lymphocytes 2.8 10^3/ul (1.0-4.8); ABS Monocytes 0.6 10^3/ul (0-0.8); ABS Neutrophils 5.8 10^3/ul (1.5-7.7); Eosinophil % 3.6 %; Hematocrit 37 % (42-52); Hemoglobin 12.2 g/dL (14.0-18.0); Lymphocyte % 29.3 %; Mean Corpuscular HGB Conc 33 g/dL (31-36); Mean Corpuscular Hemoglobin 27 pg (27-31); Mean Corpuscular Volume 79 fL (80-94); Nucleated Red Blood Cells % 0.1; Platelet Count 274 10^3/uL (150-450); Red Cell Distribution Width 17 % (10-15); White Blood Count 9.7 10^3/uL (3.5-10.8)
[2020-01-01 04:48] LABS: ALT 14 U/L (7-52); AST 20 U/L (13-39); Albumin 3.2 g/dL (3.2-5.2); Alkaline Phosphatase 99 U/L (34-104); Blood Urea Nitrogen 31 mg/dL (6-24); CO2 Carbon Dioxide 25 mmol/L (22-32); Calcium 8.3 mg/dL (8.6-10.3); Chloride 107 mmol/L (101-111); EGFR African American 40.3 (>60); EGFR Non-African American 33.3 (>60); Globulin 3.3 g/dL (2-4); Glucose 228 mg/dL (70-100); Sodium 136 mmol/L (135-145); Total Protein 6.5 g/dL (6.4-8.9)
[2020-01-01 04:53] LABS: Anion Gap 4 mmol/L (2-11); Potassium 5.1 mmol/L (3.5-5.0); Troponin I 0.09 ng/mL (<0.03)
[2020-01-01] MEDS ORDERED: Heparin 5000 UNITS/ML 1 mL VIAL IV SCH (05:00)
[2020-01-01] MEDS ORDERED: oxyCODONE/Acetamin 5/325 mg TAB PO PRN (08:26)
[2020-01-01] MEDS ORDERED: Dextrose 50% Syringe 50 ml 25 GM/50 ML SYRINGE IV PUSH PRN (08:32)
[2020-01-01 08:35] LABS: Troponin I 0.08 ng/mL (<0.03)
[2020-01-01] MEDS ORDERED: buPROPion SR 100 mg TAB.SR PO SCH (09:00)
[2020-01-01] MEDS ORDERED: Aspirin EC 81 mg TAB.EC (enteric coated) PO SCH (09:00)
[2020-01-01] MEDS ORDERED: Perflutren Lipid Microsphere 3 ML VIAL ONE (09:00)
[2020-01-01] MEDS ORDERED: Insulin GLARGINE 100 un/ml 10 ml VIAL SUBCUT SCH (09:00)
[2020-01-01] MEDS ORDERED: Furosemide 100 mg/10 ml IV VIAL IV ONE (09:21)
[2020-01-01 11:09] LABS: % Iron Saturation 8 % (15-55); Iron 30 ug/dL (50-212); Total Iron Binding Capacity 384 mcg/dL (250-450); Transferrin 274 mg/dL (203-362); Unsaturated Iron Binding < 369 ug/dL
[2020-01-01 11:29] LABS: Ferritin 25.6 ng/mL (24-336)
[2020-01-01] MEDS ORDERED: Heparin 1,000 UNIT/ML 10 ml (10,000 UNITS) CATHLAB/DIALYSIS IV ONE (11:46)
[2020-01-01] MEDS ORDERED: Midazolam 5 mg/5 ml VIAL 1 mg/ml 5 ml VIAL (5 mg) ONE (11:46)
[2020-01-01] MEDS ORDERED: VERAPAMIL 2.5 MG/ML 2 ML VIAL ** 5 mg/2 ml ONE (11:46)
[2020-01-01] MEDS ORDERED: Heparin 2 UNITS/ML 1000 mls 2,000 ML IV ONE (11:46)
[2020-01-01] MEDS ORDERED: fentaNYL 100 mcg/2 ml 50 MCG/ML VIAL ONE (11:46)
[2020-01-01] MEDS ORDERED: Lidocaine 1% VIAL 10 MG/ML VIAL ONE (11:47)
[2020-01-01] MEDS ORDERED: nitroGLYCERIN DRIP 25,000 MCG/250 ML BTL ONE ×2 (11:47→23:29)
[2020-01-01] MEDS ORDERED: Iodixanol 320 (CONTRAST) 100 ML SDV ONE (11:47)
[2020-01-02 01:27] VITALS: BP 151/60
== END 2020-01-02 00:30 | disposition short-term general hospital (02) | DRG 287 ==
LOC: ED 03:41 → ICU 08:21
PROVIDERS: ADMIT Surgery Surgical Critical Care; ATTEND Surgery Surgical Critical Care